=== PATIENT | female | born 1995 | race Caucasian/White ===

== ENCOUNTER 2024-04-15 06:09 | Emergency (ER) | payer OTHER, SELFPAY ==
[2024-04-15 06:11] VITALS: BP 95/66; PULSE 93; RESP 18; TEMP 38.2; O2SAT 96; BMI 20.9
[2024-04-15 06:17] VITALS: BP 95/66; PULSE 95; RESP 18; TEMP 38.2; O2SAT 98
[2024-04-15] MEDS: Ondansetron 4 MG/2 ML Vial IV (06:35)
[2024-04-15] MEDS: Acetaminophen 500 MG Tablet 1000 MG PO (06:35)
[2024-04-15] MEDS: 0.9% Normal Saline (500mL Bag) 500 ML 999 ML IV (06:35)
[2024-04-15 06:43] LABS: Absolute Neutrophil Count 10.6 X10^3/uL (2.0-7.7); Basophil# 0.03 X10^3/uL; Basophil% 0.3 % (0-1); Eosinophil# 0.01 X10^3/uL; Eosinophils% 0.1 % (0-5); Hematocrit 41.6 % (37-47); Lymphocyte % 4.2 % (19-41); Mean Corp Hgb Conc 33.7 g/dL (32-36); Mean Corpuscular Volume 86.1 fL (81-99); Mean Platelet Vol. 10.9 fl (6.2-12.0); Monocyte# 0.64 X10^3/uL; Monocyte% 5.4 % (0-10); NRBC Flagged by Analyzer 0 % (0-5); Neutrophil # 10.62 X10^3/uL (2.7-7.7); Neutrophil % 88.8 % (47-70); POSITIVE DIFFERENTIAL YES; Platelet Count 149 K/mm3 (150-450); RBC Distribution Width CV 12.6 % (11.6-14.6); Red Blood Count 4.83 M/mm3 (4.2-5.4); White Blood Count 11.9 K/mm3 (4.4-11.0)
--- NOTE | 2024-04-15 06:49 | EX.ED.DYSGE1 ---
HPI History of Present Illness Chief Complaint: General Illness Informant: patient and spouse/S.O. Narrative Narrative: Patient is a 28-year-old female with no significant past medical history. She states she has a 9-month-old child who she breast-feeds. She states in the last 1 to 2 days she has noticed some redness and swelling along the left upper portion of her breast. She states that this did not concern her but yesterday around 8 PM developed a fever of approximate 101 and took Tylenol. She states that with the fever she has generalized fatigue and weakness and has noticed some pain in her right lower abdomen as well as her flank region. She denies any dysuria or hematuria but reports she has had bouts of nausea and vomiting. She states there is been no loose stool or diarrhea associated with this and denies any known sick contact. However because of the fever and progression of symptoms there is concern for infection and she presents for evaluation [facility] Medical History Hx of hiatal hernia Home Medications ?Medication ?Instructions ?Recorded ?Last Taken ?Type amoxicillin 875 mg-potassium 1 tab PO BID 10 days #20 tabs 04/15/24 Unknown Rx clavulanate 125 mg tablet ondansetron 4 mg disintegrating 4 mg PO TID PRN nausea and 04/15/24 Unknown Rx tablet vomiting #21 tabs Allergy/AdvReac Type Severity Reaction Status Date / Time No Known Allergies Allergy Verified 04/15/24 06:11 Family History no significant family his Surgical History no surgical history Social History Smoking Status: Former smoker [facility] ED Constitutional Constitutional ED: Reports chills and fever(s) Eyes Eyes: Denies change in vision ENT ENT ED: Denies rhinorrhea or sore throat Cardiovascular Cardiovascular: Denies chest pain Respiratory/Chest Respiratory/Chest: Denies cough or dyspnea Gastrointestinal Gastrointestinal: Reports abdominal pain, nausea and vomiting; Denies diarrhea Genitourinary Genitourinary ED: Denies dysuria or hematuria Musculoskeletal Musculoskeletal: Reports back pain Integumentary Denies rash Neurologic Neurologic: Denies headache(s) Hematologic/Lymphatic Hematologic/Lymphatic: Denies easy bleeding or easy bruising EXAM Physical Exam Const Vital Signs: 04/15/24 06:11 04/15/24 06:17 04/15/24 06:17 Temperature 100.7 F H 100.7 F H Temperature Source Oral Oral Pulse Rate 93 95 Respiratory Rate 18 18 Respiratory Effort Normal Non-Labored Respiratory Pattern Normal Blood Pressure 95/66 95/66 Blood Pressure Mean 75 75 Pulse Ox 96 98 Oxygen Delivery Method Room Air Room Air Positive well nourished and well developed General Appearance ED: well developed; Negative for pallor HEENT Reports moist mucous membranes HEENT Narrative: No tongue or lip swelling no oral lesions no airway edema or compromise Slight cobblestoning is noted in the posterior pharynx without secondary findings to suggest infection Eyes PERRL and EOMs intact bilaterally Neck supple Neck Narrative: No nuchal rigidity or meningeal signs noted Chest Wall Chest Narrative: Along the upper lateral portion of the left breast there is faint erythema and warmth most consistent with mastitis without obvious abscess formation or lymphangitic streak. No nipple discharge noted Resp normal respiratory effort and clear to auscultation bilaterally Resp Narrative: No nasal flaring retractions tachypnea or accessory muscle use Cardio regular rate and regular rhythm GI non-distended and no masses GI Narrative: Abdomen is soft and nondistended with normal active bowel sounds. There is pain with palpation in the right lower quadrant over McBurney's point without voluntary guarding or rigidity. Negative heel strike psoas and obturator sign. No pulsatile mass or fluid wave Auscultation: normoactive bowel sounds Palpation: soft Back/Spine no CVA tenderness Extremity normal to inspection Extremity Narrative: No asymmetric edema no pitting edema negative Homans' sign bilaterally Neuro oriented x3, CN's II-XII intact bilaterally and no sensory deficits noted Sensorium / Orientation: alert Motor Exam: strength 5/5 throughout Psych mental status grossly normal Skin Skin Narrative: Soft tissue changes to the left breast as documented above General Skin Exam: Negative for jaundice or pallor MDM MDM MDM Narrative Medical decision making narrative: Patient arrived to the ER febrile but otherwise with stable vitals. She has pain with palpation in the right lower quadrant of her abdomen and therefore differential diagnosis is for acute appendicitis versus colitis versus UTI versus ovarian pathology. She also has redness and warmth along the left breast most consistent with mastitis but there is no signs of systemic infection associated with this or development of abscess. Patient does not have obvious viral symptoms such as congestion drainage and cough but with concern for pneumonia versus viral infection such as COVID a basic workup will be obtained. The patient's labs show mild leukocytosis with left shift but no lactic acidosis. Urine sample shows trace amount of blood but no sign of UTI. Viral swab is negative for COVID flu and RSV. Patient will be treated with Tylenol to reduce fever as well as IV hydration. Chest x-ray does not reveal any obvious signs of pneumonia. Therefore at this time if the CT scan does not reveal a obvious cause of infection such as appendicitis and I do feel that her symptoms are most likely stemming from the mastitis. However as she is hemodynamically stable without lactic acidosis or signs of sepsis I do feel would be appropriate to still treat her as an outpatient. As the patient's official CT result is still pending patient will be signed out to the day physician Dr. Orta. History & Record Review Discussion w/independent historian: Patient and Significant other Lab Data Attestation: I reviewed the patient's lab results. Labs: Laboratory Results - last 24 hr 04/15/24 04/15/24 06:30 06:44 WBC 11.9 H RBC 4.83 Hgb 14.0 Hct 41.6 MCV 86.1 MCH 29.0 MCHC 33.7 RDW Std Deviation 39.0 RDW Coeff of Portia 12.6 Plt Count 149 L MPV 10.9 Immature Gran % (Auto) 1.200 H Neut % (Auto) 88.8 H Lymph % (Auto) 4.2 L Chase % (Auto) 5.4 Eos % (Auto) 0.1 Baso % (Auto) 0.3 Absolute Neuts (auto) 10.6 H Absolute Lymphs (auto) 0.50 L Nucleated RBC % 0 Sodium 138 Potassium 3.4 L Chloride 105 Carbon Dioxide 28.0 Anion Gap 5 BUN 11 Creatinine 0.74 Estim Creat Clear Calc 96.86 Est GFR (MDRD) Af Amer 118 Est GFR (MDRD) Non-Af 98 BUN/Creatinine Ratio 14.8 Glucose 117 H Lactic Acid 1.1 Calcium 9.3 Urine Color Yellow Urine Clarity Clear Urine pH 6.0 Ur Specific [place] 1.010 Urine Protein 30 H Urine Glucose (UA) Normal Urine Ketones 50 H Urine Occult Blood 150 H Urine Nitrite Negative Urine Bilirubin Negative Urine Urobilinogen Normal Ur Leukocyte Esterase Negative Urine RBC 0-5 SEEN Urine WBC 0 SEEN Ur Squamous Epith Cells 0-5 SEEN Urine Bacteria 0 SEEN Urine Mucus 0 SEEN Urine Test Negative Radiography Diagnostic Testin view chest x-ray as interpreted by the emergency medicine physician reveals no acute infiltrate pneumothorax or pleural effusion Discharge Plan Triage Chief Complaint: General Illness ED Provider: Edison Lange Dx/Rx/DC Orders Clinical Impression: Mastitis, left, acute, Pyrexia, Nausea & vomiting Instructions: ED Mastitis Prescriptions: New amoxicillin-pot clavulanate 875-125 mg tablet 1 tab PO BID 10 Days Qty: 20 0RF ondansetron 4 mg tablet,disintegrating 4 mg PO TID PRN (Reason: nausea and vomiting) Qty: 21 0RF Primary Care Provider: Mark Garcia Referrals: Mark Garcia DO [Primary Care Provider] - Print Language: Japanese
[2024-04-15 06:52] LABS: Bacteria 0 SEEN /hpf (None Seen); Mucous, Urine 0 SEEN /hpf (<or=2+); White Blood Cells 0 SEEN /hpf (0-5)
[2024-04-15 06:54] LABS: Color, Urine Yellow (Yellow); Glucose, Dipstick Normal (Normal); Ketone-Dipstick 50 mg/dl (Negative); Leukocyte Esterase-Dipstick Negative /ul (Negative); Nitrite-Dipstick Negative (Negative); Occult Blood-Urine 150 /ul (Negative); Protein-Dipstick 30 mg/dl (Negative); Urine Bilirubin Dipstick Negative (Negative); Urine Clarity Clear (Clear); Urine Urobilinogen Normal (Normal)
[2024-04-15 07:01] LABS: Anion Gap 5 (5-15); BUN 11 mg/dL (7-18); BUN/Creat Ratio 14.8 RATIO (10-20); Calcium,Total 9.3 mg/dL (8.5-10.1); Chloride 105 mmol/L (98-107); Creatinine, Serum 0.74 mg/dL (0.55-1.02); EST Glomerular Filtration Rate 98 mL/min (>60); Est Glom Filt Rate - Afr Amer 118 mL/min (>60); Estimated Creatinine Clearance 96.86 ml/min; Glucose 117 mg/dL (74-106); Potassium 3.4 mmol/L (3.5-5.1); Sodium Level 138 mmol/L (136-145)
[2024-04-15 07:02] LABS: Squamous Epithelial Cells - UA 0-5 SEEN /hpf (5-10)
[2024-04-15 07:03] LABS: Internal QC Validated? YES +Cl - CLEAR BKGD; Pregnancy, Urine Negative Negative; Red Blood Cells-Urine 0-5 SEEN /hpf (0-5)
--- NOTE | 2024-04-15 07:10 | CT_ITS ---
STUDY: CT ABDOMEN AND PELVIS WITH CONTRAST REASON FOR EXAM: Female, 28 years old. RLQ PAIN WITH FEVER AND VOMITING RADIATION DOSAGE (If Supplied By Facility): CTDIvol = ( 8.51 ) mGy, DLP = ( 379.59 ) mGycm TECHNIQUE: Transaxial images were obtained from the dome of the diaphragm to the symphysis pubis without oral contrast. IV 75mL Isovue-370 was administered. Sagittal and coronal images were reconstructed. Individualized dose optimization techniques were used for this CT. COMPARISON: None. FINDINGS: The visualized lung bases are unremarkable. The visualized portions of the heart are within normal limits. Normal liver. Normal gallbladder and extrahepatic biliary system. Normal spleen. Normal pancreas. Normal bilateral adrenal glands. Normal right kidney. Normal left kidney. Normal visualized stomach. Normal small intestine. Normal colon. The appendix is visualized and appears normal. Normal abdominal aorta. Normal inferior vena cava. Normal retroperitoneum. Normal urinary bladder. Normal visualized uterus. There is 3.6 cm cyst in the right lower quadrant. There is mild free fluid in the pelvis. Normal abdominal wall. Normal osseous structures. CT/Abdomen/Pelvis W IV Cont ONLY IMPRESSION: Right adnexal cyst. Mild free fluid. Normal appendix. No obstruction. Electronically Signed: Ramón Calix MD at 8:19 EDT ,
[2024-04-15 07:12] LABS: Lactic Acid 1.1 mmol/L (0.4-1.9)
--- NOTE | 2024-04-15 07:15 | RAD_ITS ---
STUDY: X-RAY CHEST REASON FOR EXAM: Female, 28 years old. FEVER TECHNIQUE: PA and lateral views of the chest. COMPARISON: None. FINDINGS: The lungs are clear and expanded. There is no demonstrated pleural abnormality. Normal size heart. Normal mediastinum and esme. Normal visualized pulmonary arteries. Normal visualized aortic arch and descending thoracic aorta. Normal visualized thoracic spine. Normal visualized ribs, clavicles, and shoulders. There is no demonstrated abnormality of the visualized soft tissue structures of the upper abdomen. RAD/Chest PA and Lateral IMPRESSION: Normal x-ray examination of the chest. Electronically Signed: Ramón Calix MD at 8:24 EDT ,
[2024-04-15 08:11] VITALS: BP 97/59; PULSE 82; RESP 18; O2SAT 96
[2024-04-15 08:27] VITALS: BP 91/59; PULSE 82; RESP 16; TEMP 36.7; O2SAT 96
--- NOTE | 2024-04-15 08:45 | ED.RN ---
PT AND ADVISED HER BP HAVE BEEN LOW. PT IS CURRENTLY NURSING, HAS HAD N/V/D AND HAD A FEVER PREVIOUSLY. ADVISED ALL THESE THINGS CAN ALTER THE BLOOD VOLUME AND DEHYDRATE THE PT. SHE WAS ADVISED TO MOVE SLOWLY AND HYDRATE AT HOME. PT RECEIVED 500ML BOLUS AND DR. FRANCIS MADE AWARE OF BP BEFORE D/C.
== END 2024-04-15 08:46 | disposition home or self-care (01) ==
LOC: ED 07:31
PROVIDERS: Emergency Provider Emergency Medicine; PCP Family Medicine; Visit Provider Emergency Medicine
DX: N61.0 Mastitis without abscess (principal); R50.9 Fever, unspecified; R11.2 Nausea with vomiting, unspecified; Z87.891 Personal history of nicotine dependence
CPT/HCPCS: 71046; 74177; 80048; 81001; 81025; 83605; 85025; 87631; 96361; 96374; 99283; J7040; Q9967; A4216; J2405